=== PATIENT | male | born 1980 | race Caucasian/White ===

== ENCOUNTER → 2017-06-05 | Day surgery (SDC) | payer OTHER ==
[~2017-06-05] VITALS: Ht 190.5 cm; Wt 112.0 kg
--- NOTE | 2017-06-05 14:46 | Operative Report ---
Operative/Inv Procedure Report Surgery Date: 06/05/17 Name of Procedure: Excision of deep 5 cm back lipoma, right trapezius Excision of deep 3 cm right flank lipoma Pre-Operative Diagnosis: Lipoma Post-Operative Diagnosis: Same Estimated Blood Loss: scant Surgeon/Aerodynamic Consultant: Jaycob Sibley MD Anesthesia: laryngeal mask airway Specimens: 3 so lipoma and 5 cm lipoma Operative/Procedure Note Note: After consent patient brought to the operative laid supine. Gen. anesthesia was obtained his placed in decubitus right side up on a beanbag. Axillary roll was placed and bony prominences padded. The back and flank were then prepped and draped. Skin overlying the mass on the flank was after local anesthesia transverse incision made sharply. We dissected down through the deep fascia. We encountered a moderate size lipoma which was circumferentially dissected with cautery. It was peeled off of the fascia of the musculature with cautery and passed off the field. Hemostasis achieved with cautery and the incision closed in 3 layers of 3-0 and 4-0 Vicryl suture. Next we turned attention to the posterior right trapezius. Again local anesthesia was instilled and an incision made in the sagittal plane. Came through the subcutaneous tissues tissues and through the investing fascia with cautery. We encountered a large lipoma which was circumferentially dissected and peeled off the musculature. This passed off the field. Hemostasis achieved with cautery. The incision was closed in 3 layers as detailed above sterile dressings were applied. Sponge and needle counts are correct CC: Cherelle LUKE,Deep Luong
== END ==
LOC: STS 02:16
DX: D21.6 Benign neoplasm of connective and other soft tissue of trunk, unspecified (principal); M43.6 Torticollis
CPT/HCPCS: 88304